=== PATIENT | male | born 1990 | race Caucasian/White ===

== ENCOUNTER 2022-10-28 09:26 | Emergency (ER) | payer MEDICAID ==
[~2022-10-28] VITALS: Ht 182.9 cm; Wt 81.0 kg
[2022-10-28] MEDS ORDERED: normal saline 1000ML IV soln IVB ONE (09:45)
[2022-10-28] MEDS ORDERED: morphine 4 MG/ML inj SYRINge IV PRN (09:45)
[2022-10-28] MEDS ORDERED: ondansetron/PF 4mg/2ml inj IV ONE (09:45)
[2022-10-28 10:05] LABS: BASOPHILS % (AUTO) 0.2 % (0-1); EOSINOPHILS # (AUTO) 0.1 X10'3 (0-0.9); EOSINOPHILS % (AUTO) 0.6 % (0-6); HEMATOCRIT 48.5 % (42.0-52.0); HEMOGLOBIN 16.5 g/dl (14.0-17.9); LYMPHOCYTES # (AUTO) 2.1 X10'3 (1.1-4.8); LYMPHOCYTES % (AUTO) 23.1 % (21-51); MEAN CORPUSCULAR HEMOGLOBIN 30.7 PG (27.0-31.0); MEAN CORPUSCULAR HGB CONC 34.1 g/dL (33.0-36.5); MEAN CORPUSCULAR VOLUME 89.8 FL (78-98); MONOCYTES # (AUTO) 0.6 X10'3 (0-0.9); MONOCYTES % (AUTO) 6.2 % (2-12); NEUTROPHILS # (AUTO) 6.3 X10'3 (1.8-7.7); NEUTROPHILS % (AUTO) 69.9 % (42-75); PLATELET COUNT 289 X10'3 (140-440); RED CELL DISTRIBUTION WIDTH 13.5 % (11.5-14.5)
[2022-10-28 10:14] LABS: ALANINE AMINOTRANSFERASE 21 U/L (12-78); ALBUMIN 4.6 G/DL (3.4-5.0); ALBUMIN/GLOBULIN RATIO 1.4 (1.1-1.5); ALKALINE PHOSPHATASE 59 IU/L (46-116); ANION GAP 8 (8-16); ASPARTATE AMINO TRANSFERASE 19 U/L (10-37); BILIRUBIN,TOTAL 2.9 MG/DL (0.1-1.0); BLOOD UREA NITROGEN 11 MG/DL (7-18); CALCIUM 9.6 MG/DL (8.5-10.1); CHLORIDE 105 MMOL/L (99-107); CREATININE 0.92 MG/DL (0.60-1.10); GLUCOSE 103 MG/DL (70-104); LIPASE 55 U/L (73-393); POTASSIUM 3.9 MMOL/L (3.5-5.1); SODIUM 139 MMOL/L (135-145); TOTAL CARBON DIOXIDE 25.7 MMOL/L (24-32); eGFR > 90 ML/MIN
[2022-10-28] MEDS ORDERED: proCHLORperazine 10 MG/2 ml inj IV ONE (10:55)
[2022-10-28 11:02] LABS: CLARITY,URINE CLEAR (Clear); COLOR,URINE STRAW (Yellow); GLUCOSE, URINE NEGATIVE (Neg); KETONES,URINE 15 mg/dl (Neg); LEUKOCYTE ESTERASE ,URINE NEGATIVE (Neg); NITRITES, URINE NEGATIVE (Neg); OCCULT BLOOD,URINE NEGATIVE (Neg); PROTEIN,URINE NEGATIVE (Neg); UROBILINOGEN,URINE 0.2 E.U/dL (0.2-1.0)
[2022-10-28 11:03] LABS: UA COLLECTION TYPE CLN CATCH MIDSTREAM
[2022-10-28] MEDS ORDERED: PROC-8 PO (11:27)
[2022-10-28 11:48] VITALS: BP 128/78
== END 2022-10-28 11:51 | disposition home or self-care (01) ==
LOC: ER 09:26
DX: K52.9 Noninfective gastroenteritis and colitis, unspecified (principal); R10.30 Lower abdominal pain, unspecified; Z88.6 Allergy status to analgesic agent
CPT/HCPCS: 36415; 80053; 81003; 83690; 85025; 96374; 96375; 99284; J0780; J2270; J2405; J7030

== ENCOUNTER 2023-06-08 10:57 | Emergency (ER) | payer MEDICAID ==
[~2023-06-08] VITALS: Ht 182.9 cm; Wt 90.9 kg
[~2023-06-08 10:57] MED LIST: PROC-8 PO
[2023-06-08 11:03] VITALS: TEMP 97.3
--- NOTE | 2023-06-08 13:08 | NUR ---
reviewed charting agree with findings
[2023-06-08 13:34] VITALS: BP 136/82; PULSE 68; RESP 16; O2SAT 98
== END 2023-06-08 13:00 | disposition home or self-care (01) ==
LOC: ER 10:57
DX: J30.9 Allergic rhinitis, unspecified (principal); Z88.6 Allergy status to analgesic agent; Z79.899 Other long term (current) drug therapy
CPT/HCPCS: 99281

== ENCOUNTER 2023-12-26 15:39 | Emergency (ER) | payer MEDICAID, OTHER ==
[~2023-12-26] VITALS: Ht 182.9 cm; Wt 95.5 kg
[2023-12-26 15:44] VITALS: BP 129/77; PULSE 71; RESP 16; TEMP 97.8; O2SAT 97
[2023-12-26] MEDS ORDERED: ONDA4TAB12 PO (16:53)
[2023-12-26] MEDS ORDERED: KEN0.1O TOP (16:53)
== END 2023-12-26 17:04 | disposition home or self-care (01) ==
LOC: ER 15:40
DX: L50.9 Urticaria, unspecified (principal); Z88.6 Allergy status to analgesic agent; Z79.899 Other long term (current) drug therapy
CPT/HCPCS: 99283

== ENCOUNTER 2024-01-15 10:37 | Inpatient (IN) | payer OTHER, MEDICAID ==
[~2024-01-15] VITALS: Ht 182.9 cm; Wt 97.7 kg
[~2024-01-15 10:37] MED LIST changes: +ONDA4TAB12 PO
[2024-01-15 11:39] LABS: BASOPHILS % (AUTO) 0.4 % (0-1); EOSINOPHILS % (AUTO) 0.3 % (0-6); HEMATOCRIT 48.1 % (42.0-52.0); HEMOGLOBIN 16.3 g/dl (14.0-17.9); LYMPHOCYTES # (AUTO) 1.2 X10'3 (1.1-4.8); LYMPHOCYTES % (AUTO) 9.8 % (21-51); MEAN CORPUSCULAR HGB CONC 33.9 g/dL (33.0-36.5); MEAN CORPUSCULAR VOLUME 88.5 FL (78-98); MEAN PLATELET VOLUME 8.4 FL (7.4-10.4); MONOCYTES % (AUTO) 7.8 % (2-12); NEUTROPHILS % (AUTO) 81.7 % (42-75); PLATELET COUNT 349 X10'3 (140-440); RED BLOOD COUNT 5.43 X10'6 (4.70-6.10); RED CELL DISTRIBUTION WIDTH 13.2 % (11.5-14.5); WHITE BLOOD COUNT 12.2 X10'3 (4.5-11.0)
[2024-01-15 12:01] LABS: ALANINE AMINOTRANSFERASE 45 U/L (12-78); ALBUMIN 4.3 G/DL (3.4-5.0); ALBUMIN/GLOBULIN RATIO 1.1 (1.1-1.5); ALKALINE PHOSPHATASE 80 IU/L (46-116); ASPARTATE AMINO TRANSFERASE 17 U/L (10-37); BILIRUBIN,DIRECT 0.2 MG/DL (0-0.3); BILIRUBIN,TOTAL 1.1 MG/DL (0.1-1.0); LIPASE 23 U/L (16-77); TOTAL PROTEIN 8.2 G/DL (6.4-8.2)
[2024-01-15] MEDS: ondansetron/PF 4mg/2ml inj IV ONE ×2 (12:09→16:50)
[2024-01-15] MEDS: morphine 4 MG/ML inj SYRINge IV ONE ×3 (12:10→16:51)
[2024-01-15] MEDS: normal saline 1000ml 1,000 ML IV ONE (12:10)
[2024-01-15] MEDS ORDERED: iohexol 350MG/ML 100ml bottle IV ONE ×2 (12:12→12:13)
[2024-01-15 13:13] LABS: ANION GAP 13 (8-16); BLOOD UREA NITROGEN 9 MG/DL (7-18); BUN/CREATININE RATIO 10.1 (10.0-20.0); CALCIUM 9.5 MG/DL (8.5-10.1); CHLORIDE 99 MMOL/L (99-107); CREATININE 0.89 MG/DL (0.60-1.10); GLUCOSE 110 MG/DL (70-104); POTASSIUM 4.2 MMOL/L (3.5-5.1); SODIUM 136 MMOL/L (135-145); TOTAL CARBON DIOXIDE 23.8 MMOL/L (24-32); eCRCL 132 ML/MIN; eGFR > 90 ML/MIN
[2024-01-15 14:31] LABS: BILIRUBIN,URINE NEGATIVE (Neg); CLARITY,URINE CLEAR (Clear); COLOR,URINE YELLOW (Yellow); GLUCOSE, URINE NEGATIVE (Neg); KETONES,URINE NEGATIVE (Neg); LEUKOCYTE ESTERASE ,URINE NEGATIVE (Neg); NITRITES, URINE NEGATIVE (Neg); OCCULT BLOOD,URINE NEGATIVE (Neg); PROTEIN,URINE NEGATIVE (Neg); UROBILINOGEN,URINE 0.2 E.U/dL (0.2-1.0)
[2024-01-15 14:38] LABS: UA COLLECTION TYPE CLN CATCH MIDSTREAM
[2024-01-15] MEDS: methylPREDNISolone sod succ 125mg/2ml vial IV ONE (15:41)
[2024-01-15] MEDS ORDERED: magnesium Cl slow-release 64mg tablet PO PRN (17:15)
[2024-01-15] MEDS ORDERED: magnesium 4gm in 100ml NS 100 ML IV PRN (17:15)
[2024-01-15] MEDS ORDERED: magnesium 2GM in 50ml NS 50 ML IV PRN (17:15)
[2024-01-15] MEDS ORDERED: potassium Cl 20 mEq SR tablet PO PRN ×2 (17:15)
[2024-01-15] MEDS ORDERED: acetaminophen 325mg tablet PO PRN (17:15)
[2024-01-15] MEDS ORDERED: morphine 2 MG/ML inj. syringe IV PRN (17:15)
[2024-01-15] MEDS ORDERED: potassium Cl 40MEQ/1/2NS 520ml 520 ML IV PRN (17:15)
[2024-01-15] MEDS: K and/or MAG REPLACEMENT MC SCH (20:00)
[2024-01-15] MEDS: docusate sod 100mg capsule PO SCH (20:00)
[2024-01-15] MEDS: ondansetron/PF 4mg/2ml inj IV PRN (22:26)
[2024-01-15] MEDS: morphine 2 MG/ML inj. syringe IV PRN (22:26)
[2024-01-15 23:00] VITALS: BP 116/66; PULSE 71; RESP 18; TEMP 98.3; O2SAT 95
[2024-01-16] MEDS: metroNIDAZOLE-Flagyl 500mg/NS 100 ML IV SCH (02:02)
[2024-01-16] MEDS: methylPREDNISolone sod succ/PF 40mg inj. IV ONE (02:03)
[2024-01-16 06:00] VITALS: BP 121/73; PULSE 65; RESP 14; TEMP 97.3; O2SAT 96
[2024-01-16 07:50] LABS: BASOPHILS % (AUTO) 0.1 % (0-1); EOSINOPHILS % (AUTO) 0 % (0-6); HEMATOCRIT 44.6 % (42.0-52.0); HEMOGLOBIN 15.1 g/dl (14.0-17.9); LYMPHOCYTES # (AUTO) 1.2 X10'3 (1.1-4.8); LYMPHOCYTES % (AUTO) 8.1 % (21-51); MEAN CORPUSCULAR HGB CONC 33.8 g/dL (33.0-36.5); MEAN CORPUSCULAR VOLUME 88.9 FL (78-98); MEAN PLATELET VOLUME 8.3 FL (7.4-10.4); MONOCYTES # (AUTO) 0.3 X10'3 (0-0.9); NEUTROPHILS # (AUTO) 12.9 X10'3 (1.8-7.7); NEUTROPHILS % (AUTO) 89.8 % (42-75); PLATELET COUNT 319 X10'3 (140-440); RED BLOOD COUNT 5.02 X10'6 (4.70-6.10); RED CELL DISTRIBUTION WIDTH 13.4 % (11.5-14.5); WHITE BLOOD COUNT 14.4 X10'3 (4.5-11.0)
[2024-01-16 08:00] VITALS: RESP 14; O2SAT 96
[2024-01-16 08:05] LABS: ALBUMIN 3.6 G/DL (3.4-5.0); ANION GAP 8 (8-16); BLOOD UREA NITROGEN 9 MG/DL (7-18); BUN/CREATININE RATIO 12.5 (10.0-20.0); CALCIUM 8.6 MG/DL (8.5-10.1); CHLORIDE 103 MMOL/L (99-107); CREATININE 0.72 MG/DL (0.60-1.10); GLUCOSE 137 MG/DL (70-104); MAGNESIUM 1.9 MG/DL (1.5-2.4); SODIUM 137 MMOL/L (135-145); TOTAL CARBON DIOXIDE 26.5 MMOL/L (24-32); eCRCL 163 ML/MIN; eGFR > 90 ML/MIN
[2024-01-16] MEDS: methylPREDNISolone sod succ/PF 40mg inj. IV SCH (08:10)
[2024-01-16 10:00] VITALS: BP 116/76; PULSE 70; RESP 16; TEMP 98.2; O2SAT 98
[2024-01-16 18:00] VITALS: BP 113/71; PULSE 61; RESP 16; TEMP 98; O2SAT 100
[2024-01-16 20:00] VITALS: RESP 16; O2SAT 61
[2024-01-16 22:00] VITALS: BP 103/57; PULSE 57; RESP 16; TEMP 98.3; O2SAT 93
[2024-01-16] MEDS: Melatonin 3mg tablet PO PRN (22:06)
[2024-01-17 06:00] VITALS: BP 119/68; PULSE 57; RESP 18; TEMP 96.7; O2SAT 97
[2024-01-17 06:39] LABS: BASOPHILS % (AUTO) 0.2 % (0-1); EOSINOPHILS % (AUTO) 0 % (0-6); HEMATOCRIT 44.1 % (42.0-52.0); HEMOGLOBIN 14.7 g/dl (14.0-17.9); LYMPHOCYTES # (AUTO) 1.1 X10'3 (1.1-4.8); LYMPHOCYTES % (AUTO) 7.7 % (21-51); MEAN CORPUSCULAR HEMOGLOBIN 29.6 PG (27.0-31.0); MEAN CORPUSCULAR HGB CONC 33.3 g/dL (33.0-36.5); MEAN CORPUSCULAR VOLUME 88.9 FL (78-98); MEAN PLATELET VOLUME 8.5 FL (7.4-10.4); MONOCYTES # (AUTO) 0.5 X10'3 (0-0.9); MONOCYTES % (AUTO) 3.4 % (2-12); NEUTROPHILS # (AUTO) 13.1 X10'3 (1.8-7.7); NEUTROPHILS % (AUTO) 88.7 % (42-75); PLATELET COUNT 325 X10'3 (140-440); RED BLOOD COUNT 4.96 X10'6 (4.70-6.10); RED CELL DISTRIBUTION WIDTH 13.2 % (11.5-14.5); WHITE BLOOD COUNT 14.7 X10'3 (4.5-11.0)
[2024-01-17 06:55] LABS: ALBUMIN 3.6 G/DL (3.4-5.0); ANION GAP 4 (8-16); BLOOD UREA NITROGEN 12 MG/DL (7-18); BUN/CREATININE RATIO 14.8 (10.0-20.0); CALCIUM 8.9 MG/DL (8.5-10.1); CHLORIDE 104 MMOL/L (99-107); CREATININE 0.81 MG/DL (0.60-1.10); GLUCOSE 133 MG/DL (70-104); SODIUM 140 MMOL/L (135-145); eCRCL 145 ML/MIN; eGFR > 90 ML/MIN
[2024-01-17 08:00] VITALS: RESP 18; O2SAT 97
[2024-01-17] MEDS ORDERED: METR-159 PO (11:19)
[2024-01-17] MEDS ORDERED: PRED10TA23 PO (11:19)
[2024-01-17] MEDS ORDERED: HYDROcodone/acetaminophen 5mg/325mg tablet PO PRN (11:25)
[2024-01-17] MEDS ORDERED: CIPR-202 PO (11:27)
[2024-01-17] MEDS ORDERED: HYDR-3965 PO (11:27)
== END 2024-01-17 15:50 | disposition home or self-care (01) | DRG 387 ==
LOC: ER 10:38 → ED HOLD 17:18 → EDBEDREQ 22:05 → ORTHO 4S 23:05
PROVIDERS: ADMIT Internal Medicine; ATTEND Internal Medicine
PROC: BW211ZZ Computerized Tomography (CT Scan) of Abdomen and Pelvis using Low Osmolar Contrast (ICD-10-PCS; principal; 2024-01-15)
DX: K50.918 Crohn's disease, unspecified, with other complication (principal); K57.30 Diverticulosis of large intestine without perforation or abscess without bleeding; Z88.6 Allergy status to analgesic agent
CPT/HCPCS: 36415; 74177; 80048; 80076; 81003; 83690; 83735; 85025; 87081; 99285; G0378; J2270; J2405; J2920; J2930; J3490; J7030; J7040; Q9967

== ENCOUNTER 2025-01-28 10:35 | Emergency (ER) | payer OTHER, MEDICAID ==
[~2025-01-28] VITALS: Ht 182.9 cm; Wt 96.4 kg
[~2025-01-28 10:35] MED LIST changes: +ONDA-243 PO; -ONDA4TAB12 PO; -PROC-8 PO
[2025-01-28 10:40] VITALS: TEMP 98.7
[2025-01-28 11:17] LABS: BASOPHILS # (AUTO) 0.1 X10'3 (0-0.2); EOSINOPHILS # (AUTO) 0.1 X10'3 (0-0.9); EOSINOPHILS % (AUTO) 1.3 % (0-6); HEMATOCRIT 47.9 % (42.0-52.0); HEMOGLOBIN 16.3 g/dl (14.0-17.9); LYMPHOCYTES # (AUTO) 2.1 X10'3 (1.1-4.8); LYMPHOCYTES % (AUTO) 31.3 % (21-51); MEAN CORPUSCULAR HEMOGLOBIN 29.9 PG (27.0-31.0); MEAN CORPUSCULAR HGB CONC 34.1 g/dL (33.0-36.5); MEAN CORPUSCULAR VOLUME 87.7 FL (78-98); MEAN PLATELET VOLUME 8.1 FL (7.4-10.4); MONOCYTES # (AUTO) 0.6 X10'3 (0-0.9); MONOCYTES % (AUTO) 8.7 % (2-12); NEUTROPHILS # (AUTO) 3.8 X10'3 (1.8-7.7); NEUTROPHILS % (AUTO) 57.7 % (42-75); PLATELET COUNT 326 X10'3 (140-440); RED BLOOD COUNT 5.46 X10'6 (4.70-6.10); RED CELL DISTRIBUTION WIDTH 13.4 % (11.5-14.5); WHITE BLOOD COUNT 6.6 X10'3 (4.5-11.0)
[2025-01-28 11:38] LABS: ALANINE AMINOTRANSFERASE 19 U/L (12-78); ALBUMIN 4.2 G/DL (3.4-5.0); ALBUMIN/GLOBULIN RATIO 1.2 (1.1-1.5); ALKALINE PHOSPHATASE 76 IU/L (46-116); ANION GAP 7 (8-16); ASPARTATE AMINO TRANSFERASE 17 U/L (10-37); BILIRUBIN,TOTAL 1.8 MG/DL (0.1-1.0); BLOOD UREA NITROGEN 10 MG/DL (7-18); BUN/CREATININE RATIO 9.9 (10.0-20.0); CALCIUM 9.1 MG/DL (8.5-10.1); CHLORIDE 104 MMOL/L (99-107); CREATININE 1.01 MG/DL (0.60-1.10); GLUCOSE 108 MG/DL (70-104); LIPASE 24 U/L (16-77); POTASSIUM 4.4 MMOL/L (3.5-5.1); SODIUM 140 MMOL/L (135-145); TOTAL CARBON DIOXIDE 29.3 MMOL/L (24-32); TOTAL PROTEIN 7.7 G/DL (6.4-8.2); eCRCL 115 ML/MIN; eGFR 86 ML/MIN
--- NOTE | 2025-01-28 13:56 | Physician Documentation ---
History of Present Illness Chief Complaint: Abdominal Pain Stated Complaint: CHRONS FLAIR UP Time Seen by MD: 12:58 Primary Medical Doctor: Jacob Lynn [facility] Patient is seen today with complaints of Crohn's flare-up. Patient states he has significant lower abdominal cramping and was recently prescribed ciprofloxacin and Flagyl tablets but was unable to pick them up from his pharmacy but states his cramping of the lower abdomen was worse today. Patient currently denies any bloody diarrhea or blood in his stool. Patient denies any chest pain or shortness of breath or nausea, vomiting, diarrhea. Patient has no other concern or complaint at this time. Medication Reconciliation Allergies: Coded Allergies: ibuprofen (Verified Allergy, Intermediate, HIVES AND NAUSEA, 06/24/24) Scheduled PRN ONDANSETRON ODT 4mg tablet (Ondansetron Odt), 1 TAB PO Q6H PRN PRN for nausea/vomiting Past Medical History Past Medical History: *GI/HEPATOBILIARY*, Diverticulitis, Diverticulosis, Inflammatory Bowel Dz Past Surgical History: noncontributory Patient History: FH: diabetes mellitus FATHER MOTHER FH: kidney cancer GRANDFATHER OR GRANDMOTHER FH: prostate cancer FATHER GRANDFATHER OR GRANDMOTHER Drug Use: none Lives In: Home Review of Systems Constitutional: Denies: chills, fever, weakness Eyes: Denies: pain, blurred vision ENT: Denies: ear pain, nose pain, throat pain, mouth pain Respiratory: Denies: cough, shortness of breath Cardiovascular: Denies: chest pain, palpitations Gastrointestinal: Denies: abdominal pain, nausea, vomiting Genitourinary: Denies: burning, dysuria Male Genitalia: Denies: penile discharge, testicular pain Neurological: Denies: headache, dizziness Musculoskeletal: Denies: pain, swelling Integumentary: Denies: rash, lesions Allergic/Immunologic: Denies: hives, itching Hematologic/Lymphatic: Denies: no symptoms reported Psychiatric: Denies: depression, anxiety Physical Exam Vital Signs: Temperature: 98.7, Source: Temporal, Heart Rate: 54, Respiratory Rate: 16, BP: 108/72, Pulse Oximetry: 98, Weight: 96.360 Oxygen Flow Rate: 0 Progress Results/Orders Results/Orders Vital Signs 01/28/25 01/28/25 01/28/25 10:40 11:54 12:00 Temp 98.7 Pulse 66 54 Resp 18 16 B/P (MAP) 129/78 108/72 (84) Pulse Ox 99 98 O2 Flow Rate 0 0 Laboratory Tests Test 01/28/25 11:03 White Blood Count 6.6 Red Blood Count 5.46 Hemoglobin 16.3 Hematocrit 47.9 Mean Corpuscular Volume 87.7 Mean Corpuscular Hemoglobin 29.9 Mean Corpuscular Hemoglobin Concent 34.1 Red Cell Distribution Width 13.4 Platelet Count 326 Mean Platelet Volume 8.1 Neutrophils (%) (Auto) 57.7 Lymphocytes (%) (Auto) 31.3 Monocytes (%) (Auto) 8.7 Eosinophils (%) (Auto) 1.3 Basophils (%) (Auto) 1.0 Neutrophils # (Auto) 3.8 Lymphocytes # (Auto) 2.1 Monocytes # (Auto) 0.6 Eosinophils # (Auto) 0.1 Basophils # (Auto) 0.1 CBC Comment Sodium Level 140 Potassium Level 4.4 Chloride Level 104 Carbon Dioxide Level 29.3 Anion Gap 7 L Blood Urea Nitrogen 10 Creatinine 1.01 Estimated GFR/1.73 m2 86 BUN/Creatinine Ratio 9.9 L Glucose Level 108 H Calcium Level 9.1 Total Bilirubin 1.8 H Aspartate Amino Transf (AST/SGOT) 17 Alanine Aminotransferase (ALT/SGPT) 19 Alkaline Phosphatase 76 Total Protein 7.7 Albumin 4.2 Globulin 3.5 Albumin/Globulin Ratio 1.2 Lipase 24 Chemistry Comments Medical Decision Making Findings Patient is seen today with complaints of Crohn's flare-up. Patient states he has significant lower abdominal cramping and was recently prescribed ciprofloxacin and Flagyl tablets but was unable to pick them up from his pharm acy but states his cramping of the lower abdomen was worse today. Patient currently denies any bloody diarrhea or blood in his stool. Patient denies any chest pain or shortness of breath or nausea, vomiting, diarrhea. Patient has no other concern or complaint at this time. Patient was given dose of Flagyl 500 mg IV along with Zofran 8 mg IV and a L of saline IV in the ED today. Patient was also given prednisone 40 mg by mouth in the ED today. Patient states he is feeling much better and feels safe for discharge. Prednisone taper also sent to patient's pharmacy. Prescriptions of ciprofloxacin and Flagyl sent to patient's pharmacy. Patient will not drink any alcohol while taking these medications. Patient will follow up with primary care and or GI specialist for further eval and treatment of his Crohn's disease. Return to ED with any worsening, concerning or changing symptoms. Departure Disposition: HOME / SELF CARE / HOMELESS Impression: Primary Impression: Abdominal pain Qualified Codes: R10.30 - Lower abdominal pain, unspecified Additional Impression: Crohn's disease Qualified Codes: K50.90 - Crohn's disease, unspecified, without complications Condition: Improved Discharge Instructions: Crohn's Disease Referrals: NO PRIMARY CARE PROVIDER (PCP) Prescriptions Prednisone (Prednisone) 10 Mg Tablet 0 PO DAILY, #42 TAB Take 4 tabs daily x4 days, then 3 daily x4 days 2 daily x4 days 1 daily x4 days 1/2 daily x4 days then STOP Prov: ALLISON TAYLOR 01/28/25 ONDANSETRON ODT 4mg tablet (ONDANSETRON ODT) 4 Mg Tab.rapdis 4 MG PO BID for 7 Days, #14 TAB Prov: ALLISON TAYLOR 01/28/25 Metronidazole* (Flagyl*) 500 Mg Tablet 1 TAB PO Q8H for 10 Days, #30 TAB Prov: ALLISON TAYLOR 01/28/25 Ciprofloxacin HCl (Ciprofloxacin HCl) 500 Mg Tab 1 TAB PO Q12H for 10 Days, #20 TAB Prov: ALLISON TAYLOR 01/28/25 Signature Scribe Signature: No scribe Attestation: No scribe ALLISON TAYLOR January 28, 2025 13:56
[2025-01-28] MEDS: predniSONE 20 mg tablet PO STA (14:18)
[2025-01-28] MEDS: normal saline 1000ml 1,000 ML IV STA (14:19)
[2025-01-28] MEDS: metroNIDAZOLE-Flagyl 500mg/NS 100 ML IV STA (14:19)
[2025-01-28] MEDS: ondansetron/PF 4mg/2ml inj IV STA (15:29)
[2025-01-28] MEDS ORDERED: CIPR-202 PO (15:42)
[2025-01-28] MEDS ORDERED: METR-159 PO (15:42)
[2025-01-28] MEDS ORDERED: ONDA-243 PO (15:43)
[2025-01-28] MEDS ORDERED: PRED10TA23 PO (15:48)
[2025-01-28 16:05] VITALS: BP 108/72; PULSE 54; RESP 16; O2SAT 98
== END 2025-01-28 16:06 | disposition home or self-care (01) ==
LOC: ER 10:35
DX: K50.90 Crohn's disease, unspecified, without complications (principal); Z88.6 Allergy status to analgesic agent
CPT/HCPCS: 36415; 80053; 83690; 85025; 96365; 96375; 99284; J2405; J3490; J7030; J7512

== ENCOUNTER 2025-02-16 12:35 | Emergency (ER) | payer OTHER, MEDICAID ==
[~2025-02-16] VITALS: Ht 182.9 cm; Wt 78.6 kg
[~2025-02-16 12:35] MED LIST changes: +PRED10TA23 PO
[2025-02-16 12:42] VITALS: BP 146/96; PULSE 98; RESP 15; O2SAT 97
--- NOTE | 2025-02-16 13:24 | RADIOLOGY REPORT ---
Exam: DI ABDOMEN,SINGLE VIEW(KUB) Indication: INGESTION ERROR Comparison: None Technique: 3 radiographic views of the abdomen. Findings: Moderate volume colonic stool. Nonobstructive bowel gas pattern noted. There is no definite evidence for pneumoperitoneum. No abnormal calcifications noted. Impression: Nonobstructive bowel gas pattern noted.
--- NOTE | 2025-02-16 14:36 | Physician Documentation ---
History of Present Illness ~ Chief Complaint: Ingestion Error Stated Complaint: "POSSIBLY SWALLOWED METAL" Time Seen by MD: 13:06 Primary Medical Doctor: Jacob Sainz [facility] Patient is seen today with complaints of possibly swallowing a piece of metal. Patient states he was eating an egg roll and took a few bites without chewing very well and then on his 3rd by he bit down into a small piece of metal in his concerned he might have swallows metal. Patient admits to history of Crohn's disease and diverticulitis history. Patient states he also has significant tooth pain from biting down on that piece of metal. He has no other concern or complaint at this time. Patient denies any current abdominal pain or chest pain or shortness of breath or nausea, vomiting, diarrhea. Medication Reconciliation Allergies: Coded Allergies: ibuprofen (Verified Allergy, Intermediate, HIVES AND NAUSEA, 06/24/24) Scheduled ONDANSETRON ODT 4mg tablet (Ondansetron Odt), 4 MG PO BID Prednisone (Prednisone), 0 PO DAILY Scheduled PRN ONDANSETRON ODT 4mg tablet (Ondansetron Odt), 1 TAB PO Q6H PRN PRN for nausea/vomiting Past Medical History Past Medical History: *GI/HEPATOBILIARY*, Diverticulitis, Diverticulosis, Inflammatory Bowel Dz Past Surgical History: noncontributory Patient History: FH: diabetes mellitus FATHER MOTHER FH: kidney cancer GRANDFATHER OR GRANDMOTHER FH: prostate cancer FATHER GRANDFATHER OR GRANDMOTHER Drug Use: none Lives In: Home Review of Systems Constitutional: Denies: chills, fever, weakness Eyes: Denies: pain, blurred vision ENT: Denies: ear pain, nose pain, throat pain, mouth pain Respiratory: Denies: cough, shortness of breath Cardiovascular: Denies: chest pain, palpitations Gastrointestinal: Denies: abdominal pain, nausea, vomiting Genitourinary: Denies: burning, dysuria Male Genitalia: Denies: penile discharge, testicular pain Neurological: Denies: headache, dizziness Musculoskeletal: Denies: pain, swelling Integumentary: Denies: rash, lesions Allergic/Immunologic: Denies: hives, itching Hematologic/Lymphatic: Denies: no symptoms reported Psychiatric: Denies: depression, anxiety Physical Exam Vital Signs: Temperature: 98.5, Source: Temporal, Heart Rate: 98, Respiratory Rate: 15, BP: 146/96, Pulse Oximetry: 97, Weight: 78.600 Physical Exam General: Awake and Alert, no acute distress. HEENT: Conjunctiva pink, Sclera clear, Mucus Membranes moist. Neck: Supple without masses and tenderness. Resp: Unlabored. Lungs clear to auscultation bilaterally. Heart: Regular Rate and rhythm, normal S1 and S2 without murmur, rub or gallop. Abdomen: Admit is Soft and non tender no organomegaly, no rebound tenderness and no guarding. Extremities: No cyanosis,clubbing or edema. Skin: Warm and Dry. Progress Results/Orders Results/Orders Orders - ALLISON TAYLOR PAC Abdomen,Single View(Kub) (02/16/25 12:46) Completed Orders - ALLISON TAYLOR PAC Abdomen,Single View(Kub) (02/16/25 12:46) Vital Signs 02/16/25 12:42 Temp 98.5 Pulse 98 Resp 15 B/P (MAP) 146/96 Pulse Ox 97 Medical Decision Making Findings Patient is seen today with complaints of possibly swallowing a piece of metal. Patient states he was eating an egg roll and took a few bites without chewing very well and then on his 3rd by he bit down into a small piece of metal in his concerned he might have swallows metal. Patient admits to history of Crohn's disease and diverticulitis history. Patient states he also has significant tooth pain from biting down on that piece of metal. He has no other concern or complaint at this time. Patient denies any current abdominal pain or chest pain or shortness of breath or nausea, vomiting, diarrhea. Patient did have KUB that showed no acute findings. Patient will continue to monitor for any changes of abdominal pain. Patient will follow up with primary care in 1-3 days if no better as needed sooner. Return to ED with any worsening, concerning or changing symptoms. Patient admits to an ibuprofen allergy and states Tylenol has not been controlling his dental pain. Prescription for [place] 5/325 mg sent to patient's pharmacy to be taken as pres cribed. And as needed only. Departure Disposition: 01 HOME / SELF CARE / HOMELESS Impression: Primary Impression: Accidental ingestion of potentially harmful entity Additional Impression: Pain, dental Condition: Stable Discharge Instructions: Dental Pain, [id number] Additional Instructions: Patient did have KUB that showed no acute findings. Patient will continue to monitor for any changes of abdominal pain. Patient will follow up with primary care in 1-3 days if no better as needed sooner. Return to ED with any worsening, concerning or changing symptoms. Patient admits to an ibuprofen allergy and states Tylenol has not been controlling his dental pain. Prescription for [place] 5/325 mg sent to patient's pharmacy to be taken as prescribed. And as needed only. Departure Forms: Excuse form Work or School Excused From: Work Excuse beginning now through the following date: Feb 16, 2025 Referrals: NO PRIMARY CARE PROVIDER (PCP) Prescriptions Hydrocodone Bit/Acetaminophen 5/325 MG ([place] 5/325 MG) 5 Mg/325 Mg Tablet 1 TAB PO Q12H PRN PRN for pain for 5 Days, #10 TAB Prov: ALLISON TAYLOR 02/16/25 Signature Scribe Signature: No scribe Attestation: No scribe ALLISON TAYLOR Feb 16, 2025 14:36
[2025-02-16] MEDS ORDERED: HYDR-3965 PO (14:41)
[2025-02-16 15:04] VITALS: TEMP 98.5
== END 2025-02-16 15:07 | disposition home or self-care (01) ==
LOC: ER 12:36
DX: T65.891A Toxic effect of other specified substances, accidental (unintentional), initial encounter (principal); K08.89 Other specified disorders of teeth and supporting structures; Z88.6 Allergy status to analgesic agent; Z88.8 Allergy status to other drugs, medicaments and biological substances; Y92.89 Other specified places as the place of occurrence of the external cause
CPT/HCPCS: 74018; 99283

== ENCOUNTER 2025-05-12 19:25 | Emergency (ER) | payer OTHER, MEDICAID ==
[~2025-05-12] VITALS: Ht 182.9 cm; Wt 83.4 kg
[~2025-05-12 19:25] MED LIST changes: -PRED10TA23 PO
[2025-05-12 19:44] VITALS: TEMP 98.5
--- NOTE | 2025-05-12 19:52 | ELECTROCARDIOGRAPH REPORT ---
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
--- NOTE | 2025-05-12 20:27 | Physician Documentation ---
History of Present Illness ~ Chief Complaint: Cold, cough & congestion Stated Complaint: INGESTION ERROR Time Seen by MD: 20:21 Primary Medical Doctor: Jacob Sainz [facility] HPI Patient presents to the emergency room with nausea vomiting and generally not feeling well. Positive exposure to COVID over the weekend. He states he has been able to drank much water over the last couple of days and feels dehydrated. Medication Reconciliation Allergies: Coded Allergies: ibuprofen (Verified Allergy, Intermediate, HIVES AND NAUSEA, 06/24/24) Scheduled ONDANSETRON ODT 4mg tablet (Ondansetron Odt), 4 MG PO BID Scheduled PRN ONDANSETRON ODT 4mg tablet (Ondansetron Odt), 1 TAB PO Q6H PRN PRN for nausea/vomiting Past Medical History Past Medical History: *GI/HEPATOBILIARY*, Diverticulitis, Diverticulosis, Inflammatory Bowel Dz Past Surgical History: noncontributory Patient History: FH: diabetes mellitus FATHER MOTHER FH: kidney cancer GRANDFATHER OR GRANDMOTHER FH: prostate cancer FATHER GRANDFATHER OR GRANDMOTHER Drug Use: none Lives In: Home Review of Systems ROS All review of systems negative except as per HPI Physical Exam Vital Signs: Temperature: 98.5, Source: Temporal, Heart Rate: 65, Respiratory Rate: 16, BP: 139/98, Pulse Oximetry: 98, Weight: 83.400 Oxygen Flow Rate: 0 General Appearance General: Patient is awake, alert, oriented x4 in no acute distress Head: Normocephalic and atraumatic. Eyes: Conjunctival normal. EOMI. PERRL. ENT: Mucous membranes moist. Neck: Supple, trachea is midline. Chest: Clear to auscultation bilaterally without rales, rhonchi, or wheezes. There is no accessory muscle use or retractions. Cardiac: RRR without murmurs, gallops, or rubs. Abd: Soft, nondistended, nontender, with normoactive bowel sounds. No guarding, rebound, or rigidity. Progress Results/Orders Results/Orders Orders - KY BOYKIN MD Covid19 Binax Poc Result Entry (05/12/25 19:52) Chest,Single View (05/12/25 20:30) Completed Orders - KY BOYKIN MD Electrocardiogram (05/12/25 19:43) Ondansetron Inj. (Zofran 4mg/2ml Vial) (05/12/25 20:30) Normal Saline 1000ml (0.9% Sodium Chlori (05/12/25 20:30) Acetaminophen 1,000mg/100ml Iv (Ofirmev (05/12/25 20:30) Chest,Single View (05/12/25 20:30) Medications Received in ER Medications (Trade) Dose Ordered Sig/Nataliya Route PRN Reason Start Time Stop Time Status Last Admin Dose Admin (Zofran 4mg/2ml vial) 8 mg ONCE ONCE IV 05/12/25 20:30 05/12/25 20:32 DC 05/12/25 21:03 8 MG Sodium Chloride 1,000 ml @ 1,000 mls/hr ONCE ONCE IV 05/12/25 20:30 05/12/25 21:29 DC 05/12/25 21:00 1,000 MLS/HR Acetaminophen 100 ml @ 400 mls/hr ONCE ONCE IV 05/12/25 20:30 05/12/25 20:44 DC 05/12/25 21:02 400 MLS/HR Vital Signs 05/12/25 19:44 Temp 98.5 Pulse 65 Resp 16 B/P (MAP) 139/98 Pulse Ox 98 O2 Flow Rate 0 Laboratory Tests Test 05/12/25 19:58 SARS-CoV-2 Antigen (Rapid) Negative EKG/XRAY/CT/US/VASC/MRI EKG : Additional Comment EKG interpreted by myself shows time of 1947, rate 60, sinus rhythm, normal axis, no ST changes Chest X-Ray : Additional Comments One view chest x-ray interpreted by myself is negative for effusions negative for infiltrates and normal cardiac silhouette Medical Decision Making Findings Patient feeling much better. Patient presented to the emergency room with some cough vomiting diarrhea generalized body aches. Differentials include but are not limited to viral syndrome, COVID, dehydration, electrolyte disturbances. Given time of onset he had not feel patient requires emergent labs. Chest x-ray reassuring. He has responded to therapy. Symptoms likely viral in nature. ER precautions discussed Departure Disposition: HOME / SELF CARE / HOMELESS Impression: Primary Impression: Viral syndrome Condition: Improved Discharge Instructions: Viral Illness, Adult Referrals: NO PRIMARY CARE PROVIDER (PCP) Prescriptions Benzonatate* (Benzonatate*) 100 Mg Capsule 1-2 CAP PO Q4H for cough, #30 CAP Prov: KY BOYKIN MD 05/12/25 Ondansetron 8mg ODT (Ondansetron Odt) 8 Mg Tab.rapdis 1 TAB PO Q6H for nausea/vomiting for 3 Days, #12 TAB 0 Refills Prov: KY BOYKIN MD 05/12/25 Signature Scribe Signature: No scribe Attestation: The note accurately reflects work and decisions made by me.Ky Boykin MD 05/12/25 21:43 KY BOYKIN MD May 12, 2025 20:26
[2025-05-12] MEDS: normal saline 1000ml 1,000 ML IV ONE (21:00)
[2025-05-12] MEDS: acetaminophen 1,000mg/100ml IV 100 ML IV ONE (21:02)
[2025-05-12] MEDS: ondansetron/PF 4mg/2ml inj IV ONE (21:03)
--- NOTE | 2025-05-12 21:07 | RADIOLOGY REPORT ---
EXAM: DI CHEST,SINGLE VIEW CLINICAL HISTORY: cough TECHNIQUE: Single AP view of the chest WID: COMPARISON: None FINDINGS: Lines and tubes: None Chest: The heart size and pulmonary vasculature is within normal limits. No pleural effusion, pneumothorax, or consolidation. The osseous structures are grossly intact. IMPRESSION: 1. No acute cardiopulmonary abnormality.
[2025-05-12] MEDS ORDERED: ONDA-245 PO (21:43)
[2025-05-12] MEDS ORDERED: BENZ-38 PO (21:43)
[2025-05-12 22:15] VITALS: BP 128/78; PULSE 78; RESP 18; O2SAT 98
== END 2025-05-12 22:16 | disposition home or self-care (01) ==
LOC: ER 19:26
DX: B34.9 Viral infection, unspecified (principal); E86.0 Dehydration; Z20.822 Contact with and (suspected) exposure to COVID-19; Z88.6 Allergy status to analgesic agent; Z79.899 Other long term (current) drug therapy
CPT/HCPCS: 36415; 71045; 87811; 93005; 96361; 96374; 96375; 99285; J0131; J2405; J7030

== ENCOUNTER 2025-06-28 13:39 | Emergency (ER) | payer OTHER, MEDICAID ==
[~2025-06-28] VITALS: Ht 182.9 cm; Wt 89.5 kg
[~2025-06-28 13:39] MED LIST changes: +ONDA-245 PO
[2025-06-28 14:30] LABS: CREATININE 0.71 MG/DL (0.60-1.10); MEAN PLATELET VOLUME 8.8 FL (7.4-10.4); RED CELL DISTRIBUTION WIDTH 13.1 % (11.5-14.5); eCRCL 162 ML/MIN; eGFR > 90 ML/MIN
[2025-06-28 14:31] LABS: TOTAL CARBON DIOXIDE 26.4 MMOL/L (24-32)
[2025-06-28 14:56] LABS: LEUKOCYTE ESTERASE ,URINE NEGATIVE (Neg); NITRITES, URINE NEGATIVE (Neg); OCCULT BLOOD,URINE NEGATIVE (Neg); UA COLLECTION TYPE CLN CATCH MIDSTREAM
[2025-06-28] MEDS: ondansetron/PF 4mg/2ml inj IV ONE ×2 (15:15→19:03)
[2025-06-28] MEDS: morphine 4 MG/ML inj SYRINge IV ONE ×2 (15:15→19:03)
[2025-06-28] MEDS ORDERED: iohexol 300mg/ml 100ml inj. ONE (16:42)
--- NOTE | 2025-06-28 16:44 | RADIOLOGY REPORT ---
EXAM: US ULTRASOUND OF ABDOMEN HISTORY: Abd pain, RUQ. epigastric, Nausea, vomiting COMPARISON: DI ABDOMEN,SINGLE VIEW(KUB) on DOS: 02/16/25 TECHNIQUE: Multiple longitudinal and transverse sonographic images of the abdomen were obtained. Doppler was applied as indicated. FINDINGS: [PANCREAS]: The visualized portions of the pancreas are unremarkable. [AORTA]: Normal [LIVER]: 17.6 cm. normal echogenicity and echotexture. There is no focal hepatic mass lesion detected. [GALLBLADDER]: Gallbladder wall measures 0.2 cm. There is no gallbladder sludge or shadowing gallstone. There is no sonographic Rosales sign. [BILIARY TREE]: Common bile duct measures 0.3 cm in diameter. no intrahepatic biliary ductal dilatation. [ASCITES]: No free fluid is demonstrated. [VESSELS]: The main portal vein is patent on color Doppler evaluation. The inferior vena cava is patent on color Doppler evaluation. [RIGHT KIDNEY]: 10 x 3.9 x 5.2 cm. normal cortical echogenicity and normal contour. No hydronephrosis. IMPRESSION: 1. No acute sonographic abnormality of the abdomen.
--- NOTE | 2025-06-28 17:47 | RADIOLOGY REPORT ---
EXAM: CT CT ABDOMEN PELVIS W/ IV CONTRAST HISTORY: Pain nausea vomiting history of colitis. TECHNIQUE: Volumetric multidetector CT images of the abdomen and pelvis were obtained after the administration of intravenous contrast. All CT scans at this facility use dose modulation, iterative reconstruction, and/or weight based dosing when appropriate to reduce radiation dose to as low as reasonably achievable. COMPARISON: US ULTRASOUND OF ABDOMEN on DOS: 06/28/25 FINDINGS: [LOWER CHEST]: The partially visualized lung bases are clear without a pleural effusion. [LIVER]: Normal hepatic size without suspicious focal lesion. [GALLBLADDER AND BILIARY TREE]: No cholelithiasis. [SPLEEN]: Unremarkable. [PANCREAS]: Unremarkable. [ADRENAL GLANDS]: Unremarkable [KIDNEYS]: No hydronephrosis. No nephroureterolithiasis. No suspicious focal lesion. [BLADDER]: Unremarkable for the degree distention. [REPRODUCTIVE ORGANS]: Abnormal oval-shaped fluid attenuating 2.9 cm lesion /structure above the level of the prostate and of the base of the seminal vesicles which may be compatible with an ejaculatory duct cyst. Imaging finding is unchanged from 01/15/24. [BOWEL/MESENTERY]: Indeterminate area dilation proximal 2nd to proximal 3rd segment of the duodenum measuring up to 2.7 cm. Imaging finding is not present on prior examination. Finding may be within normal limits however correlate with clinical exam for proximal enteritis /duodenitis versus SMA syndrome. Stomach is within normal limits. normal appendix. [ASCITES]: Absent [LYMPHADENOPATHY]: No pathologically enlarged lymph nodes by CT size criteria [VASCULATURE]: No aneurysmal dilatation. [ABDOMINAL WALL]: Unremarkable. [MUSCULOSKELETAL]: No acute fracture or aggressive focal osseous lesion. IMPRESSION: 1. Indeterminate area of dilation of the proximal 2nd to proximal 3rd segment of the duodenum measuring up to 2.7 cm. 2. Imaging finding is not present on prior examination. 3. Finding may be within normal limits however correlate with clinical exam for proximal enteritis /duodenitis versus SMA syndrome. 4. 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
--- NOTE | 2025-06-28 18:50 | Physician Documentation ---
History of Present Illness Chief Complaint: Abdominal Pain w/vomiting Stated Complaint: ABD PAIN Time Seen by MD: 15:16 Primary Medical Doctor: Jacob Sainz [facility] Patient is a very pleasant 35-year-old male that presents to the emergency department for evaluation of significant upper right quadrant pain with associated epigastric pain. Patient reports he has a significant history of colitis that he has been treated multiple x4. Patient reports that his pain today feels different than his normal colitis episodes. Patient reports significant nausea and vomiting associated with his abdominal pain. Denies fever chills at this time. Patient denies any hematemesis blood in his urine or stool or any other symptoms at this time. Medication Reconciliation Allergies: Coded Allergies: ibuprofen (Verified Allergy, Intermediate, HIVES AND NAUSEA, 06/28/25) Scheduled ONDANSETRON ODT 4mg tablet (Ondansetron Odt), 4 MG PO BID Discontinued Medications ONDANSETRON ODT 4mg tablet (Ondansetron Odt), 1 TAB PO Q6H PRN PRN for nausea/vomiting Discontinued Reason: patient no longer taking Ondansetron 8mg ODT (Ondansetron Odt), 1 TAB PO Q6H Discontinued Reason: patient no longer taking Past Medical History Past Medical History: *GI/HEPATOBILIARY*, Diverticulitis, Diverticulosis, Inflammatory Bowel Dz Past Surgical History: noncontributory Patient History: FH: diabetes mellitus FATHER MOTHER FH: kidney cancer GRANDFATHER OR GRANDMOTHER FH: prostate cancer FATHER GRANDFATHER OR GRANDMOTHER Drug Use: none Lives In: Home Review of Systems ROS As stated above in the HPI, otherwise all systems are reviewed and negative. Physical Exam Vital Signs: Temperature: 98.0, Source: Oral, Heart Rate: 79, Respiratory Rate: 15, BP: 124/85, Pulse Oximetry: 99, Weight: 89.550 Oxygen Flow Rate: 0 Physical Exam VITALS: Reviewed and as above. GENERAL: Alert, no apparent distress. HEENT: Normocephalic, atraumatic, PERRL, EOMI, dry mucosa, no erythema RESPIRATORY: Lungs clear, normal breath sounds, no respiratory distress. CHEST: No accessory muscle use, no retractions CV: Regular rate, rhythm, no edema, no murmur, No: JVD GI: Soft, have a get tenderness with palpation to right upper quadrant and left upper quadrant, distended abdomen noted, bowels sounds present, no rebound, guarding, or rigidity BACK: No CVA tenderness, or swelling MUSCULOSKELETAL No deformities, no edema SKIN: Warm and dry, no rash NEURO: Oriented x4, No motor or sensory deficit PSYCH: Normal mood and affect, no agitation Progress Results/Orders Results/Orders Orders - YAYO GUERRA POLISHER APPRENTICE Ultrasound Of Abdomen (06/28/25 15:48) Ct Abdomen Pelvis (06/28/25 16:30) Completed Orders - YAYO GUERRA POLISHER APPRENTICE Ondansetron Inj. (Zofran 4mg/2ml Vial) (06/28/25 15:10) Morphine 4mg/Ml Inj. (Morphine Inj.) (06/28/25 15:10) Ultrasound Of Abdomen (06/28/25 15:48) Iohexol 300mg/Ml 100ml Inj. (Omnipaque-3 (06/28/25 16:42) Ct Abdomen Pelvis (06/28/25 16:30) Medications Received in ER Medications (Trade) Dose Ordered Sig/Nataliya Route PRN Reason Start Time Stop Time Status Last Admin Dose Admin (Zofran 4mg/2ml vial) 4 mg ONCE ONCE IV 06/28/25 15:10 06/28/25 15:11 DC 06/28/25 15:15 4 MG (morphine inj.) 4 mg ONCE ONCE IV 06/28/25 15:10 06/28/25 15:11 DC 06/28/25 15:15 4 MG Vital Signs 06/28/25 06/28/25 06/28/25 13:45 14:50 16:03 Temp 98.0 Pulse 78 83 79 Resp 16 15 15 B/P (MAP) 129/84 118/78 (91) 124/85 (98) Pulse Ox 97 99 99 O2 Flow Rate 0 Laboratory Tests Test 06/28/25 14:00 06/28/25 14:40 White Blood Count 11.3 H Red Blood Count 5.25 Hemoglobin 15.6 Hematocrit 46.0 Mean Corpuscular Volume 87.6 Mean Corpuscular Hemoglobin 29.8 Mean Corpuscular Hemoglobin Concent 34.0 Red Cell Distribution Width 13.1 Platelet Count 310 Mean Platelet Volume 8.8 Neutrophils (%) (Auto) 71.1 Lymphocytes (%) (Auto) 14.8 L Monocytes (%) (Auto) 6.3 Eosinophils (%) (Auto) 7.0 H Basophils (%) (Auto) 0.8 Neutrophils # (Auto) 8.1 H Lymphocytes # (Auto) 1.7 Monocytes # (Auto) 0.7 Eosinophils # (Auto) 0.8 Basophils # (Auto) 0.1 CBC Comment Sodium Level 138 Potassium Level 3.8 Chloride Level 103 Carbon Dioxide Level 26.4 Anion Gap 9 Blood Urea Nitrogen 11 Creatinine 0.71 Estimated GFR/1.73 m2 > 90 BUN/Creatinine Ratio 15.5 Glucose Level 101 Calcium Level 8.6 Total Bilirubin 1.6 H Aspartate Amino Transf (AST/SGOT) 15 Alanine Aminotransferase (ALT/SGPT) 18 Alkaline Phosphatase 74 Total Protein 7.8 Albumin 4.0 Globulin 3.8 Albumin/Globulin Ratio 1.1 Lipase 21 Chemistry Comments Urine Specimen Description Cln catch midstream Urine Color Yellow Urine Clarity Clear Urine pH 8.5 Urine Specific Uvalda 1.020 Urine Protein Negative Urine Glucose (UA) Negative Urine Ketones Negative Urine Occult Blood Negative Urine Nitrite Negative Urine Bilirubin Negative Urine Urobilinogen 0.2 Urine Leukocyte Esterase Negative Urine Culture Indicated Not ind Volume Urine Centrifuged 10 ml Urine Comment Medical Decision Making Additional information obtaine: other Findings Patient presented to the emergency department with abdominal pain, nausea, and vomiting. Past medical history is significant for colitis. Imaging: CT abdomen/pelvis revealed indeterminate dilation of the proximal second to third segment of the duodenum, measuring up to 2.7 cm. Differential diagnosis includes proximal enteritis, duodenitis, and superior mesenteric artery (SMA) syndrome. ED Course: Patient received intravenous fluids with clinical improvement. No evidence of peritonitis, obstruction, or toxic colitis on exam or imaging. Laboratory studies unremarkable for acute infection or metabolic derangement. Consultation: Case discussed with Dr. Fountain (Surgery). Consensus reached that patient is stable for discharge to home with close outpatient follow-up. No indication for emergent surgical intervention at this time. Discharge Plan: Follow-up: Patient instructed to follow up with primary care provider and lens polisher hand within 1 week. Referral placed for outpatient esophagogastroduodenoscopy (EGD) to further evaluate duodenal findings. Diet: Advised to adhere to a low-fiber, full fluid diet, avoiding bulky foods that may exacerbate symptoms. Education: Patient counseled on CT findings and the differential diagnosis. Explained that duodenal dilation may be related to inflammation, transient functional changes, or rarely, vascular compression (SMA syndrome). Emphasized importance of outpatient evaluation and further testing. Return Precautions: Strict instructions provided to return to the ED immediately for worsening abdominal pain, persistent vomiting, inability to tolerate oral intake, hematemesis, melena, fever, or signs of dehydration. Comprehension: Patients understanding of discharge instructions was assessed and confirmed. Opportunity provided for questions. Summary: Patient is clinically stable for discharge after multidisciplinary evaluation and supportive care. Outpatient follow-up and further diagnostic workup are essential to clarify the etiology of duodenal dilation and guide ongoing management. All discharge instructions provided verbally and in writing, per best practice guidelines. Differential Dx:Considerations: Appendicitis, Bowel obstruction, Cholangitis, Cholelithasis, Constipation, Diverticular disease, Gastritis/PUD, Joyce roenteritis, GI hemorrhage, Inflammatory BD, Ischemic bowel, Pancreatitis, Other Departure Disposition: 01 HOME / SELF CARE / HOMELESS Impression: Primary Impression: Vomiting Additional Impression: Abdominal pain Discharge Instructions: Abdominal Pain, Adult, [id number], Gastritis, Adult Additional Instructions: You are being discharged today after evaluation for abdominal pain, nausea, and vomiting. Your CT scan showed a mild widening (dilation) of the upper part of your small intestine (duodenum). This can be caused by inflammation (enteritis or duodenitis) or, less commonly, by a condition called superior mesenteric artery (SMA) syndrome, which is a type of blockage. What your CT findings mean: Proximal enteritis/duodenitis means inflammation in the first part of your small intestine, which can cause pain, nausea, and vomiting. SMA syndrome is a rare condition where a blood vessel compresses the intestine, causing blockage symptoms. Most cases are managed without surgery, b ut close follow-up is important. Dietary recommendations: Eat small, frequent meals instead of large ones. Choose low-fiber, low-residue foods (such as white bread, rice, eggs, lean meats, and dairy). Avoid bulky, high-fiber foods (raw vegetables, whole grains, nuts, seeds) and foods that cause bloating (beans, onions, garlic, high-fat foods). If you have trouble with solid foods, try a full fluid diet (milk, yogurt, smoothies, broths, and nutritional supplements). If you notice certain foods make your symptoms worse, avoid them. Some people benefit from a low-FODMAP diet, but this should be done with a dietitian or GI provider. Follow-up instructions: Schedule an appointment with your primary care provider and lens polisher hand within 1 week. You will need an EGD (upper endoscopy) to look directly at your duodenum and help guide further treatment. A referral to gastroenterology has been provided today. Strict return precautions: Return to the emergency department immediately if you have: Severe or worsening abdominal pain Persistent vomiting or inability to keep fluids down Blood in your vomit or stool (black or red) Fever or chills Signs of dehydration (dry mouth, dizziness, not urinating) New or worsening swelling of your belly Education and next steps: Most cases of duodenal dilation from inflammation improve with rest, fluids, and dietary changes. Rarely, if symptoms do not improve or get worse, further testing or treatment may be needed, including surgery for SMA syndrome. With her primary care provider for a referral to Gastroenterology. Please follow up with lens polisher hand [facility]. Return to the emergency department with any worsening or recurrent symptoms or any additional concerning symptoms that we discussed here today. Keep a record of your symptoms and any foods that make them worse. If you have questions or concerns, contact your doctor or lens polisher hand. You have been given written instructions and a referral for follow-up. Please read these carefully and ask questions if anything is unclear. Referrals: NO PRIMARY CARE PROVIDER (PCP) Education Educated: Patient Educated regarding: diagnosis, treatment, need for follow up Signature Scribe Signature: A Attestation: Scribed for Yayo Guerra by ELIESER Rosales . 06/28/25 18:50 YAYO GUERRA Jun 28, 2025 18:50
[2025-06-28] MEDS: normal saline 1000ML IV soln IVB ONE (19:03)
[2025-06-28] MEDS: ondansetron 4mg rapidly disintigrating tab PO ONE (20:11)
[2025-06-28 20:14] VITALS: BP 109/76; PULSE 74; RESP 16; TEMP 98; O2SAT 100
== END 2025-06-28 20:17 | disposition home or self-care (01) ==
LOC: ER 13:40
DX: R10.13 Epigastric pain (principal); Z88.6 Allergy status to analgesic agent
CPT/HCPCS: 36415; 74177; 76700; 80053; 81003; 83690; 85025; 96361; 96374; 96375; 96376; 99285; J2270; J2405; J7030; Q9967